=== PATIENT | male | born 1975 | race Caucasian/White ===

== ENCOUNTER 2022-07-23 13:39 | Observation (INO) | payer BC ==
[2022-07-23] MEDS ORDERED: Ondansetron PF 4 MG/2 ML Vial ONE ×2 (15:01→18:40)
[2022-07-23 15:02] LABS: #Monocytes 0.7 thou/uL (0.11-0.59); #Neutrophils 10.5 thou/uL (1.40-6.50); %Basophils 0.2 % (0.0-1.0); %Eosinophils 0.1 % (0.0-10.0); %Lymphocytes 3.7 % (21.0-51.0); %Monocytes 6.1 % (0.0-10.0); %Neutrophils 89.1 % (42.0-75.0); Hemoglobin 13.6 g/dL (14.0-18.0); Mean Corpuscular HGB CONC 35.6 g/dL (32.0-36.0); Mean Corpuscular Hemoglobin 30.6 pg (27.0-31.0); Mean Platelet Volume 9.6 fL (7.4-10.4); Platelet Count 697 10x3/uL (130-400); RBC Distribution Width 14.6 % (11.5-14.5); Red Blood Cell (RBC) Count 4.44 mill/uL (4.70-6.10); White Blood Cell (WBC) Count 11.8 10x3/uL (4.8-10.8)
[2022-07-23] MEDS ORDERED: diphenhydrAMINE 50 MG/ML VIAL ONE (15:25)
[2022-07-23] MEDS ORDERED: Metoclopramide HCl 10 MG/2 ML VIAL ONE (15:25)
[2022-07-23 15:26] LABS: ALT (SGPT) 19 U/L (8-55); AST (SGOT) 26 U/L (5-34); Albumin 4.3 g/dL (3.5-5.0); Alkaline Phosphatase 62 U/L (40-110); Anion Gap 14 mmol/L (10-20); BUN (Urea Nitrogen) 11 mg/dL (8.9-20.6); Bilirubin, Total 1.3 mg/dL (0.2-1.2); Calc. Creatinine Clearance 0 mL/min (70-130); Calcium 9.2 mg/dL (7.8-10.44); Carbon Dioxide 22 mmol/L (22-29); Chloride 97 mmol/L (98-107); Estimated GFR 91; Glucose 103 mg/dL (70-105); Lipase 62 U/L (8-78); Potassium 3.4 mmol/L (3.5-5.1); Protein, Total 6.3 g/dL (6.0-8.3); Sodium 130 mmol/L (136-145)
[2022-07-23 15:28] LABS: Troponin I Less than 0.010 ng/mL (< 0.028)
[2022-07-23] MEDS ORDERED: Famotidine/PF 20 mg/2ml Vial ONE (16:29)
[2022-07-23] MEDS ORDERED: Potassium Chloride 20 MEQ TAB ONE (16:29)
[2022-07-23] MEDS ORDERED: Pantoprazole 40 MG VIAL ONE (18:40)
[2022-07-23 19:28] LABS: Bacteria/HPF None Seen HPF (None Seen); Bilirubin Negative (Negative); Blood, Urine Negative (Negative); CAUTI Indications for Culture Pelvic or flank pain; Clarity Clear (Clear); Glucose, Urine (Dipstick) Normal (Negative); Ketone, Urine Greater than 150 mg/dL (Negative); Leukocyte Negative Leu/uL (Negative); Mucous/LPF Rare LPF (<2+); Nitrite Negative (Negative); Protein, Urine (Dipstick) 20 mg/dL (Neg-Trace); RBC/HPF None Seen HPF (0-3); Specific Gravity, Urine 1.022 (1.002-1.036); Squamous Epithelial 0-3 HPF (0-3); WBC/HPF 0-3 HPF (0-3); pH, Urine 6.5 (5.0-9.0)
[2022-07-23 19:29] LABS: Urine Culture Reflex No No
[2022-07-23] MEDS ORDERED: Ondansetron PF 4 MG/2 ML Vial IVP PRN (21:47)
[2022-07-23] MEDS ORDERED: diphenhydrAMINE 50 MG/ML VIAL IVP PRN (21:56)
[2022-07-23] MEDS ORDERED: Metoclopramide HCl 10 MG/2 ML VIAL IVP PRN (21:56)
[2022-07-23] MEDS: Lactated Ringer's 1,000 ML IV SCH (22:31)
[2022-07-24 02:51] LABS: Free T4 (Free Thyroxine) 1.11 ng/dL (0.70-1.48)
[2022-07-24] MEDS: Lactated Ringer's 1,000 ML IV SCH ×2 (05:27→12:56)
[2022-07-24 07:04] LABS: #Monocytes 0.5 thou/uL (0.11-0.59); #Neutrophils 5.3 thou/uL (1.40-6.50); %Basophils 0.6 % (0.0-1.0); %Eosinophils 0.4 % (0.0-10.0); %Lymphocytes 13.2 % (21.0-51.0); %Neutrophils 77.8 % (42.0-75.0); Hemoglobin 11.3 g/dL (14.0-18.0); Mean Corpuscular HGB CONC 34.5 g/dL (32.0-36.0); Mean Corpuscular Hemoglobin 30.6 pg (27.0-31.0); Mean Platelet Volume 9.7 fL (7.4-10.4); RBC Distribution Width 14.5 % (11.5-14.5); Red Blood Cell (RBC) Count 3.69 mill/uL (4.70-6.10); White Blood Cell (WBC) Count 6.9 10x3/uL (4.8-10.8)
[2022-07-24 07:23] LABS: Mean Corpuscular Volume 88.9 fl (78.0-98.0); Platelet Count 545 10x3/uL (130-400)
[2022-07-24 07:36] LABS: ALT (SGPT) 16 U/L (8-55); AST (SGOT) 24 U/L (5-34); Albumin 3.7 g/dL (3.5-5.0); Alkaline Phosphatase 51 U/L (40-110); Anion Gap 8 mmol/L (10-20); BUN (Urea Nitrogen) 7 mg/dL (8.9-20.6); Bilirubin, Total 0.6 mg/dL (0.2-1.2); Calc. Creatinine Clearance 0 mL/min (70-130); Calcium 8.7 mg/dL (7.8-10.44); Carbon Dioxide 25 mmol/L (22-29); Chloride 103 mmol/L (98-107); Estimated GFR 103; Globulin 1.6 g/dL (2.4-3.5); Glucose 92 mg/dL (70-105); Potassium 3.4 mmol/L (3.5-5.1); Protein, Total 5.3 g/dL (6.0-8.3); Sodium 133 mmol/L (136-145)
[2022-07-24] MEDS ORDERED: Potassium Chloride 20 MEQ TAB PO SCH (08:45)
[2022-07-24] MEDS ORDERED: Pantoprazole 40 MG VIAL IVP SCH (09:00)
[2022-07-24 11:50] VITALS: BP 124/80; TEMP 98.1
== END 2022-07-24 16:07 | disposition home or self-care (01) ==
LOC: ERS 13:39 → T4-B 22:29
PROVIDERS: ADMIT Emergency Medicine; ATTEND Emergency Medicine
DX: E87.1 Hypo-osmolality and hyponatremia (principal); E86.1 Hypovolemia; E87.6 Hypokalemia; D75.839 Thrombocytosis, unspecified; I86.1 Scrotal varices; N43.3 Hydrocele, unspecified; R16.1 Splenomegaly, not elsewhere classified; D75.81 Myelofibrosis; Z79.82 Long term (current) use of aspirin; Z79.899 Other long term (current) drug therapy
CPT/HCPCS: 36415; 76870; 80053; 81001; 83690; 84439; 84443; 84481; 84484; 85025; 85379; 85652; 86140; 93005; 93976; 96365; 96366; 96367; 96375; 96376; C9113; G0378; J1200; J2405; J2765; J7120; S0028